=== PATIENT | male | born 2000 ===

== ENCOUNTER 2022-06-04 14:32 | Inpatient (IN) | payer OTHER ==
[~2022-06-04] VITALS: Ht 172.7 cm; Wt 56.7 kg
[2022-06-04] MEDS ORDERED: INSULANPEN SC (14:59)
[2022-06-04] MEDS ORDERED: HUMULIN R100 UNIT/1 (15:00)
[2022-06-04 16:10] LABS: BASOPHILS ABSOLUTE AUTO 0.05 K/mm3 (0.00-0.23); BASOPHILS PERCENT AUTO 0 % (0-2); EOSINOPHILS ABSOLUTE AUTO 0.01 K/mm3 (0.00-0.68); EOSINOPHILS PERCENT AUTO 0 % (0-6); Hematocrit 46.8 % (37.0-53.0); IMMATURE GRAN ABSOLUTE AUTO 0.36 K/mm3 (0.00-0.10); IMMATURE GRAN PERCENT AUTO 1 % (0-1); LYMPHOCYTES ABSOLUTE AUTO 1.61 K/mm3 (0.84-5.20); LYMPHOCYTES PERCENT AUTO 6 % (21-46); MONOCYTES ABSOLUTE AUTO 1.67 K/mm3 (0.16-1.47); MONOCYTES PERCENT AUTO 6 % (4-13); Mean Corpuscular HGB 30.9 pg (26.0-34.0); Mean Corpuscular HGB Conc 34.2 g/dL (31.5-36.5); Mean Corpuscular Volume 91 fL (80-100); NEUTROPHILS ABSOLUTE AUTO 23.98 K/mm3 (1.96-9.15); NEUTROPHILS PERCENT AUTO 87 % (41-73); Platelet Count 356 K/mm3 (150-400); RDW Coefficient Variation 11.9 % (11.7-14.2); RDW Standard Deviation 40.2 fL (35.1-46.3); Red Blood Cell Count 5.17 M/mm3 (4.30-5.90); White Blood Cell Count 27.68 K/mm3 (4.00-11.30)
[2022-06-04 16:56] LABS: Bicarbonate Venous 10.5 mmol/L (24.0-30.0); PCO2 Venous 22.9 mmHg (38-42); pH Blood Venous 7.12 (7.34-7.37)
[2022-06-04 17:12] LABS: Albumin, Blood 3.5 g/dL (3.4-5.0); Albumin/Globulin Ratio 0.9 (0.8-1.8); Bilirubin, Total 0.9 mg/dL (0.1-1.0); Bun/Creatinine Ratio 47.1 (12.0-20.0); Calcium, Blood 8.4 mg/dL (8.5-10.1); Creatinine, Blood 0.7 mg/dL (0.60-1.20); Potassium, Blood 4.7 mmol/L (3.5-5.5); Total Protein, Blood 7.5 g/dL (6.4-8.2)
--- NOTE | 2022-06-04 18:46 | NUR ---
ICU ADMISSION / SHIFT SUMMARY: REPORT RECEIVED FROM JOSE WHITE IN [facility]. PT ARRIVED VIA [facility]SP[facility] AT APPROX 1345 TO ICU-16. ON ARRIVAL, THE PT IS A&O TO ALL, STS HAVING SOME EPIGASTRIC PAIN THAT IS WORSENED W/ BELCHING & NAUSEA, "OKAY" RIGHT NOW. LS CLEAR T/O, PT ON RA W/ O2 SATS > 95%. MONITOR SHOWS ST W/ HR 110-150s, INCREASED W/ EXERTION. HTN W/ DBP 90-100s, PT STS HE HAS HIGH BP "SOMETIMES." HE HAS C/O INCREASED THIRST & IS REQUESTING DIET SODA, INFORMED THAT ICE CHIPS & WATER HAVE BEEN OKAY'd BY PROVIDER BUT HE IS TO BE NPO OTHERWISE. PT ALSO C/O CHRONIC INDIGESTION THAT HAS BEEN WORSE TODAY W/ NAUSEA. VOIDS URINE W/O DIFFICULTY USING URINAL, LARGE AMNTS PALE YELLOW URINE VOIDED THIS SHIFT. SKIN CONDITION OVERALL POOR, INTACT. NUMEROUS AREAS OF SCABS & SCARS NOTED TO FACE & UPPER BODY. PT REPOSITIONS HIMSELF FOR COMFORT PRN. NO ACUTE CHANGES SINCE INITIAL ASSESSMENT. INSULIN DRIP INFUSING AT 1.5 UNITS/HR W/ Q1H CBG CHECKS. REPEAT CHEM PANELS ORDERED. LR BOLUS INFUSING & TO BE FOLLOWED W/ LR INFUSION AT 200 ML/HR PER DR MIJARES. ONCE CBG < 200, D5 1/2 NS TO BE STARTED PER ORDERS. US COMPLETED OF SMALL MASS UNDER RIGHT EARLOBE. DR MIJARES WOULD LIKE THE PT TO CONTINUE ON THE INSULIN DRIP THROUGHOUT THE NIGHT, EVEN IF LABS HAVE BEEN CORRECTED. WILL CONTINUE TO MONITOR & REPORT OFF TO ONCOMING RN.
[2022-06-04 21:44] LABS: Calcium, Blood 7.8 mg/dL (8.5-10.1); Creatinine, Blood 0.59 mg/dL (0.60-1.20)
[2022-06-05 01:25] LABS: BASOPHILS ABSOLUTE AUTO 0.05 K/mm3 (0.00-0.23); BASOPHILS PERCENT AUTO 0 % (0-2); EOSINOPHILS PERCENT AUTO 0 % (0-6); Hematocrit 40.8 % (37.0-53.0); Hemoglobin 14.2 g/dL (13.5-17.5); IMMATURE GRAN PERCENT AUTO 1 % (0-1); LYMPHOCYTES ABSOLUTE AUTO 2.92 K/mm3 (0.84-5.20); LYMPHOCYTES PERCENT AUTO 11 % (21-46); MONOCYTES ABSOLUTE AUTO 2.61 K/mm3 (0.16-1.47); MONOCYTES PERCENT AUTO 10 % (4-13); Mean Corpuscular HGB 30.5 pg (26.0-34.0); Mean Corpuscular HGB Conc 34.8 g/dL (31.5-36.5); Mean Corpuscular Volume 88 fL (80-100); Mean Platelet Volume 10.2 fL (9.1-12.4); NEUTROPHILS ABSOLUTE AUTO 21.52 K/mm3 (1.96-9.15); NEUTROPHILS PERCENT AUTO 79 % (41-73); Platelet Count 304 K/mm3 (150-400); RDW Coefficient Variation 12.1 % (11.7-14.2); RDW Standard Deviation 38.8 fL (35.1-46.3); Red Blood Cell Count 4.65 M/mm3 (4.30-5.90)
[2022-06-05 01:32] LABS: Base Excess Venous -10.2 mmol/L; Bicarbonate Venous 17.6 mmol/L (24.0-30.0); PCO2 Venous 28.8 mmHg (38-42); pH Blood Venous 7.34 (7.34-7.37)
[2022-06-05 01:50] LABS: Magnesium, Blood 1.8 mg/dL (1.6-2.4)
[2022-06-05 02:09] LABS: Albumin, Blood 2.8 g/dL (3.4-5.0); Albumin/Globulin Ratio 0.8 (0.8-1.8); Bilirubin, Total 1.1 mg/dL (0.1-1.0); Bun/Creatinine Ratio 31.5 (12.0-20.0); Calcium, Blood 7.7 mg/dL (8.5-10.1); Creatinine, Blood 0.57 mg/dL (0.60-1.20); Globulin, Blood 3.5 g/dL (2.2-4.0); Phosphorus, Blood 1.5 mg/dL (2.5-4.9); Potassium, Blood 3.5 mmol/L (3.5-5.5); Total Protein, Blood 6.3 g/dL (6.4-8.2)
--- NOTE | 2022-06-05 05:13 | NUR ---
SHIFT SUMMARY: 2029- Pt requesting to shower. I explained that he cannot shower with critical IV drips running. Denies pain/ discomfort at this time. 2100- CBG below 200, fluids changed to D51/2NS per order and LR discontinued. 0050- Pt complaining of chest pressure/ pain and frequent PVCs noted on monitor (NSR in the 70s-80s). MD notified, orders placed for EKG, drawing AM labs early and added Mg and Phos. Chest pressure resolved spontaneously. Pt complained of nausea/ stomach ache, medicated with zofran. Phos on AM labs 1.5 and K 3.5. Order for Kphos received and started at 0430. He is now complaining of chest pressure again. MD notified and order received to add troponin on to morning labs. Result pending. Otherwise, labs look improved this morning. CBGs have been between 200-230 consistently since the beginning of the shift. Of note, the patient has a reddened, round, swollen area on his right neck that resembles an abscess and his WBC was still 27K this morning. He is afebrile. Large volume of urine output overnight.
--- NOTE | 2022-06-05 07:44 | NUR ---
ASSUMED CARE / DR BEAR: REPORT RECEIVED FROM PRICILLA Jordan RN. ASSUMED CARE OF THIS PT AT APPROX 0700. ON ASSESSMENT, THE PT IS RESTING QUIETLY & AWAKENS EASILY TO VERBAL STIMULUS. HE IS A&O TO ALL AT THAT TIME. HE HAS NO CURRENT C/O PAIN & QUICKLY RESUMES SLEEPING. LS CLEAR T/O, PT ON RA W/ O2 SATS > 92%. MONITOR SHOWS SR W/ HR 80s, BP STABLE. PT HAS NO CURRENT GI COMPLAINTS, DIET ORDERED THIS AM W/ INTENT TO BRIDGE OFF INSULIN DRIP. VOIDS URINE W/O DIFFICULTY USING URINAL. SKIN CONDITION OVERALL POOR, INTACT. NUMEROUS AREAS OF SCABBING & SCARRING NOTED TO FACE & UPPER BODY. PT REPOSITIONS HIMSELF FOR COMFORT PRN. THIS RN HAS CALLED DR BEAR FOR ORDER CLARIFICATION THIS AM. ORDERS PLACED TO RESUMED PT's INSULIN GLARGINE TONIGHT. THIS RN HAS REQUESTED TO RETIME THIS MEDICATION FOR AM, FIRST DOSE NOW, IN ORDER TO BRIDGE OFF OF INSULIN DRIP. ORDERS HAVE BEEN ADJUSTED & THIS RN WILL ADMINISTER INSULIN GLARGINE ONCE AVAILABLE FROM PHARMACY. PLAN TO D/C INSULIN DRIP APPROX 2 HRS AFTER GLARGINE GIVEN. WILL CONTINUE TO MONITOR & UPDATE NEEDED.
[2022-06-05 14:45] LABS: Bun/Creatinine Ratio 25.7 (12.0-20.0); Calcium, Blood 8.1 mg/dL (8.5-10.1); Creatinine, Blood 0.47 mg/dL (0.60-1.20); Phosphorus, Blood 1.4 mg/dL (2.5-4.9); Potassium, Blood 3.3 mmol/L (3.5-5.5)
--- NOTE | 2022-06-05 15:02 | NUR ---
UPDATE: REPEAT CHEM PANEL & PHOS DRAWN AT APPROX 1300. RESULTS REPORTED TO PROVIDER & ORDERS OBTAINED FOR 30 MMOL IV KPHOS & 40 MEQ PO KCL.
--- NOTE | 2022-06-05 16:29 | NUR ---
ASSUMPTION OF CARE PT TRANSFERRED FROM ICU TO UNIT VIA WC. PT AOX4, ABLE TO AMBULATE FROM WC TO BED W/O ASSIST FROM CARE STAFF. PT ON RM AIR. PT REPORTS NO N/V OR PAIN. INDEPENDENT IN RM. PT ORIENTED TO UNIT & ROOM. NO NEEDS @ THIS TIME. PERSONAL ITEMS & CALL LIGHT WITHIN REACH.
--- NOTE | 2022-06-05 16:33 | NUR ---
TRANSFER TO SURGICAL FLOOR / SHIFT SUMMARY: REPORT HAS BEEN GIVEN TO SARAN RN & MARYBEL, LIGHTING ENGINEERING TECHNICIAN TO ASSUME CARE. PT HAS BEEN TRANSFERRED TO ROOM 227 AT APPROX 1620 VIA WC BY THIS RN. CHART, MEDS & ALL BELONGINGS HAVE BEEN TAKEN OVER W/ PT AT THIS TIME. NO ACUTE CHANGES THIS SHIFT. PT REMAINS A&O, PLEASANT & COOPERATIVE. LS CLEAR T/O, PT ON RA W/ O2 SATS > 95%. MONITOR SHOWS SR W/ HR 70-90s, BP STABLE. PT HAS POOR APPETITE BUT IS TOLERATING SMALL AMNTS OF PO INTAKE WELL W/ NO C/O NAUSEA THIS SHIFT. NO BM. VOIDS URINE W/O DIFFICULTY USING URINAL. SKIN CONDITION OVERALL UNCHANGED. NUMEROUS AREAS OF SCABBING & SCARRING NOTED TO FACE & UPPER BODY. PT REPOSITIONS SELF FOR COMFORT PRN.
--- NOTE | 2022-06-05 18:19 | NUR ---
UPDATE: CALLED TO PT RM BY RHONDA, NOTIFIED THAT CYST BEHIND R EAR HAD BURST. FOUND PT TO BE HOLDING WASHCLOTH TO EAR, PURULENT, FOUL SMELLING DISCHARGE ASSESSED ON PT & HOSPITAL BED. LIGHT PRESSURE APPLIED TO CYST W/ GAUZE, DISCHARGE CONTINUED TO BE ASSESSED. DECREASING INFLAMMATION NOTED. PT REPORTED MILD DISCOMFORT WHILE PRESSURE WAS APPLIED. STOPPED APPLYING PRESSURE ONCE BLOOD WAS NOTED. PT INSTRUCTED TO HOLD WARM WASHCLOTH TO EAR. COMPLETE LINEN CHANGE PERFORMED. PT INSTRUCTED TO USE CALL LIGHT FOR ANY CHANGES.
--- NOTE | 2022-06-06 06:24 | NUR ---
PT HAD UNEVENTFUL NIGHT. VSS, HR SINUS 80-90'S. TRIGEMINEY REPORTED X1 PER TELE MONITOR, PT ASYMPTOMATIC. PT MAUREEN PO, REP MILD NAUSEA, ZOFRAN GIVEN X1 W/REP RELIEF. PT REP NO NEW DRNG NOTED FROM AREA ON R NECK. PT HAD SHOWER THIS BOBBY, IS INDEP IN ROOM, AMB IN HALLS, MAUREEN WELL, IS EAGER TO D/C HOME.
[2022-06-06 07:01] LABS: Albumin, Blood 2.7 g/dL (3.4-5.0); Albumin/Globulin Ratio 0.7 (0.8-1.8); Bun/Creatinine Ratio 23.8 (12.0-20.0); Calcium, Blood 8.2 mg/dL (8.5-10.1); Creatinine, Blood 0.5 mg/dL (0.60-1.20); Globulin, Blood 3.7 g/dL (2.2-4.0); Phosphorus, Blood 1.6 mg/dL (2.5-4.9); Potassium, Blood 3.4 mmol/L (3.5-5.5); Total Protein, Blood 6.4 g/dL (6.4-8.2)
--- NOTE | 2022-06-06 13:11 | NUR ---
DISCUSSED DISCHARGE INSTRUCTIONS. WAITING FOR RIDE FROM FRIEND BACK TO [facility].
--- NOTE | 2022-06-06 14:38 | NUR ---
PATIENT IS BEING WHEELCHAIRED DOWN TO HIS RIDE. HE IS DRESSED AND HAS ALL PERSONAL ITEMS IN THE ROOM GATHERED. SARAN GARCIA INSTRUCTED HIM ON DISCHARGE INSTRUCTIONS. IV WAS TAKEN OUT AND WNL. HE IS TOLERATING PO INTAKE AND IS VOIDING.
== END 2022-06-06 14:40 | disposition home or self-care (01) | DRG 638 ==
LOC: ICUW 14:32 → SURS 06-05 16:23
PROVIDERS: Family Medicine; ADMIT Internal Medicine
DX: E10.10 Type 1 diabetes mellitus with ketoacidosis without coma (principal); E87.1 Hypo-osmolality and hyponatremia; N17.9 Acute kidney failure, unspecified; E83.39 Other disorders of phosphorus metabolism; D72.829 Elevated white blood cell count, unspecified; F15.10 Other stimulant abuse, uncomplicated; R22.1 Localized swelling, mass and lump, neck; F12.10 Cannabis abuse, uncomplicated; E86.1 Hypovolemia; I49.3 Ventricular premature depolarization; E86.0 Dehydration
CPT/HCPCS: 36415; 76536; 80048; 80053; 82803; 82947; 83036; 83735; 84100; 84484; 85025; 93005; 93010; A9270; J1815; J2405; J7030; J7040; J7042; J7060; J7120